=== PATIENT | female | born 1965 | race African-American/Black ===

== ENCOUNTER 2022-05-30 18:39 | Emergency (ER) | payer MEDICAID ==
[~2022-05-30] VITALS: Ht 172.7 cm; Wt 85.0 kg
[2022-05-30] MEDS ORDERED: TIZANIDINE HCL 2MG TABLET PO STA ×2 (19:34→20:40)
[2022-05-30 20:52] LABS: BASOPHILS % 0.4 % (0.0-2.0); EOSINOPHILS % 1.8 % (0.0-5.0); HEMATOCRIT. 41.5 % (36.0-48.0); HEMOGLOBIN. 13.5 g/dL (12.0-16.0); LYMPHOCYTES % 30.2 % (20.0-50.0); MEAN CORPUSCULAR HEMOGLOBIN 27.4 pg (28.0-32.0); MEAN CORPUSCULAR VOLUME 84.3 fL (81.0-99.0); MEAN PLATELET VOLUME 7.8 fl (7.4-10.4); MONOCYTES % 6.9 % (2.0-8.0); NEUTROPHILS % 60.7 % (40.0-76.0); PLATELET 306 x1000/uL (130-400); RED BLOOD CELL COUNT 4.93 mill/uL (4.2-5.4); RED CELL DISTRIBUTION WIDTH 14.5 % (11.6-14.6)
[2022-05-30 21:03] LABS: INR 1.4; PROTHROMBIN TIME 14.3 sec (9.6-11.0)
[2022-05-30 21:11] LABS: CHLORIDE 107 mEq/L (98-107)
[2022-05-30 21:20] LABS: ETHANOL BLOOD < 10 mg/dL
[2022-05-30] MEDS ORDERED: SODIUM CHLORIDE 0.9% 1,000 ML IV ONE (21:30)
[2022-05-30] MEDS ORDERED: POTASSIUM CHLORIDE 10MEQ TABLET SR PO SCH (21:30)
[2022-05-30] MEDS: MAGNESIUM OXIDE 400MG TABLET PO SCH (22:54)
[2022-05-30] MEDS ORDERED: CLOP-31 MT (23:54)
[2022-05-30] MEDS ORDERED: ATOR40TA70 MT (23:54)
[2022-05-30] MEDS ORDERED: TIZA6CAP7 MT (23:54)
[2022-05-30] MEDS ORDERED: AMLO10TA80 MT (23:54)
[2022-05-30] MEDS ORDERED: ASPI-1406 MT (23:54)
[2022-05-31] MEDS ORDERED: ACETAMINOPHEN 325MG TABLET PO ONE (07:45)
[2022-05-31] MEDS ORDERED: ACETAMINOPHEN 325MG TABLET PO NR (10:15)
[2022-05-31] MEDS: MAGNESIUM OXIDE 400MG TABLET PO SCH (10:28)
[2022-05-31 10:45] VITALS: BP 154/88
== END 2022-05-31 10:48 | disposition home or self-care (01) ==
LOC: ER 18:39
DX: G89.29 Other chronic pain (principal); Z59.00 Homelessness unspecified; Z76.0 Encounter for issue of repeat prescription; I10 Essential (primary) hypertension; F12.10 Cannabis abuse, uncomplicated; Z86.73 Personal history of transient ischemic attack (TIA), and cerebral infarction without residual deficits
CPT/HCPCS: 36415; 70450; 71045; 80053; 80320; 83690; 83880; 84484; 85025; 85610; 93005; 99285; J7030; G0480